=== PATIENT | male | born 1935 ===

== ENCOUNTER 2021-08-07 19:30 | Inpatient (IN) | payer MEDICARE, OTHER ==
[2021-08-07] MEDS ORDERED: Albuterol 200 PUFF (6.7GM INHALER) ONE ×2 (20:32→22:22)
[2021-08-07] MEDS ORDERED: Albuterol Sulfate 2.5 mg/0.5 ml Neb ONE (20:33)
[2021-08-07] MEDS ORDERED: Albuterol Sulfate 1.25 MG/3 ML NEB ONE (20:33)
[2021-08-07] MEDS ORDERED: Acetaminophen 500 MG TAB ONE (20:35)
[2021-08-07 20:41] LABS: #Eosinphils 0.1 thou/uL (0.0-0.7); #Lymphocytes 0.5 thou/uL (1.20-3.40); #Monocytes 0.7 thou/uL (0.11-0.59); #Neutrophils 4.4 thou/uL (1.40-6.50); %Basophils 0.2 % (0.0-1.0); %Eosinophils 1.1 % (0.0-10.0); %Lymphocytes 9.1 % (21.0-51.0); %Monocytes 11.9 % (0.0-10.0); %Neutrophils 77.6 % (42.0-75.0); Hemoglobin 14.4 g/dL (14.0-18.0); Mean Corpuscular Hemoglobin 30.3 pg (27.0-31.0); Mean Corpuscular Volume 91.8 fL (78.0-98.0); Mean Platelet Volume 7.8 fL (7.4-10.4); Platelet Count 182 thou/uL (130-400); RBC Distribution Width 12.6 % (11.5-14.5); Red Blood Cell (RBC) Count 4.77 mill/uL (4.70-6.10); White Blood Cell (WBC) Count 5.7 thou/uL (4.8-10.8)
[2021-08-07 21:05] LABS: ALT (SGPT) 12 U/L (8-55); AST (SGOT) 17 U/L (5-34); Albumin 4.1 g/dL (3.4-4.8); Alkaline Phosphatase 121 U/L (40-110); Anion Gap 13 mmol/L (10-20); BUN (Urea Nitrogen) 21 mg/dL (8.4-25.7); Bilirubin, Total 0.5 mg/dL (0.2-1.2); Calc. Creatinine Clearance 0 mL/min (70-130); Calcium 9.6 mg/dL (7.8-10.44); Carbon Dioxide 35 mmol/L (23-31); Chloride 100 mmol/L (98-107); Globulin 2.8 g/dL (2.4-3.5); Glucose 147 mg/dL (83-110); Potassium 3.5 mmol/L (3.5-5.1); Protein, Total 6.9 g/dL (5.8-8.1); Sodium 144 mmol/L (136-145)
[2021-08-07] MEDS ORDERED: Magnesium 2 GM/50 ML BAG (IN WATER) ONE ×2 (21:45→22:22)
[2021-08-07] MEDS ORDERED: predniSONE 20 MG TAB ONE ×2 (21:45→22:22)
[2021-08-07 22:10] LABS: SARS-CoV-2 NAA Rapid Test DETECTED (NotDetected)
[2021-08-07] MEDS ORDERED: Acetaminophen 325 MG TAB PO PRN (23:00)
[2021-08-07] MEDS ORDERED: Ondansetron ODT 4 MG TAB SL PRN (23:00)
[2021-08-07] MEDS ORDERED: Albuterol 200 PUFF (6.7GM INHALER) INH PRN (23:00)
[2021-08-07] MEDS ORDERED: Ondansetron PF 4 MG/2 ML Vial IVP PRN (23:00)
[2021-08-08 02:08] VITALS: BMI 18.8
[2021-08-08 07:13] LABS: Actual Bicarbonate (HCO3v) 28 mEq/L (22-28); Base Excess 0.6 mEq/L (-2.0 to +3.0); Calcium, Ionized (venous) 1.13 mmol/L (1.16-1.32); Chloride (VBG) 100 mmol/L (98-106); Hemoglobin (Hb) 14.6 g/dL (12.6-17.4); pH (venous) 7.32 (7.32-7.43)
[2021-08-08] MEDS ORDERED: Ondansetron PF 4 MG/2 ML Vial IVP PRN (09:02)
[2021-08-08] MEDS ORDERED: Ondansetron ODT 4 MG TAB SL PRN (09:02)
[2021-08-08] MEDS ORDERED: Acetaminophen 500 MG TAB PO PRN (09:02)
[2021-08-08] MEDS ORDERED: hydrALAZINE 20 MG/ML VIAL SLOW IVP PRN (09:02)
[2021-08-08] MEDS ORDERED: Ibuprofen 200 MG TAB PO PRN (09:02)
[2021-08-08] MEDS ORDERED: Benzonatate 100 MG CAP PO PRN (09:02)
[2021-08-08 10:17] LABS: CRP (Inflammatory) 1.65 mg/dL (= or < 0.5); Magnesium 2.3 mg/dL (1.6-2.6)
[2021-08-08] MEDS ORDERED: Cholecalciferol (Vitamin D3) 400 UNITS TAB PO SCH (10:30)
[2021-08-08] MEDS ORDERED: Mometasone 200 MCG/Formoterol 5 MCG 120 PUFF INHALER INH SCH (10:30)
[2021-08-08] MEDS ORDERED: Ascorbic Acid 500 mg Chewable Tablet PO SCH (10:30)
[2021-08-08] MEDS ORDERED: Zinc Sulfate 220 MG CAP PO SCH (10:30)
[2021-08-08] MEDS: Azithromycin 500 MG in Sodium Chloride 0.9% 250 ML 250 ML IVPB SCH (10:37)
[2021-08-08] MEDS: Dexamethasone 10 MG/ML VIAL SLOW IVP SCH ×2 (10:37→20:20)
[2021-08-08] MEDS: Famotidine 20 MG TAB PO SCH (10:38)
[2021-08-08] MEDS: cefTRIAXone\\ROCEPHIN 1 GM in Sodium Chloride 0.9% 100 ML IVPB SCH (10:38)
[2021-08-08] MEDS ORDERED: Pharmacy to Dose REMDESIVIR IVPB PRN ×2 (10:54→10:55)
[2021-08-08 11:08] LABS: Anion Gap 14 mmol/L (10-20); BUN (Urea Nitrogen) 21 mg/dL (8.4-25.7); Calc. Creatinine Clearance 34 mL/min (70-130); Calcium 9.2 mg/dL (7.8-10.44); Carbon Dioxide 31 mmol/L (23-31); Chloride 98 mmol/L (98-107); Glucose 171 mg/dL (83-110); Potassium 4.1 mmol/L (3.5-5.1); Sodium 139 mmol/L (136-145)
[2021-08-08 11:11] LABS: ALT (SGPT) 12 U/L (8-55); AST (SGOT) 14 U/L (5-34); Albumin 3.6 g/dL (3.4-4.8); Alkaline Phosphatase 107 U/L (40-110); Bilirubin, Direct 0.2 mg/dL (0.1-0.3); Bilirubin, Total 0.3 mg/dL (0.2-1.2)
[2021-08-08] MEDS ORDERED: REMDESIVIR 200 MG in Sodium Chloride 0.9% 250 ML 210 ML IV SCH (13:15)
[2021-08-08] MEDS: Enoxaparin Sodium 30 MG/0.3 ML SYRINGE SC SCH (20:19)
[2021-08-09] MEDS: Mometasone 200 MCG/Formoterol 5 MCG 120 PUFF INHALER INH SCH ×3 (02:25→05:05)
[2021-08-09 06:52] LABS: Anion Gap 14 mmol/L (10-20); BUN (Urea Nitrogen) 33 mg/dL (8.4-25.7); Calc. Creatinine Clearance 33 mL/min (70-130); Carbon Dioxide 29 mmol/L (23-31); Chloride 102 mmol/L (98-107); Glucose 119 mg/dL (83-110); Potassium 3.8 mmol/L (3.5-5.1); Sodium 141 mmol/L (136-145)
[2021-08-09 06:55] LABS: ALT (SGPT) 12 U/L (8-55); AST (SGOT) 24 U/L (5-34); Albumin 3.4 g/dL (3.4-4.8); Alkaline Phosphatase 101 U/L (40-110); Bilirubin, Direct 0.1 mg/dL (0.1-0.3); Bilirubin, Total 0.2 mg/dL (0.2-1.2); Protein, Total 5.8 g/dL (5.8-8.1)
[2021-08-09 07:16] LABS: #Lymphocytes 0.5 thou/uL (1.20-3.40); #Monocytes 0.7 thou/uL (0.11-0.59); #Neutrophils 7.5 thou/uL (1.40-6.50); %Basophils 0.1 % (0.0-1.0); %Eosinophils 0.1 % (0.0-10.0); %Lymphocytes 5.7 % (21.0-51.0); %Monocytes 7.8 % (0.0-10.0); %Neutrophils 86.3 % (42.0-75.0); Hemoglobin 14.5 g/dL (14.0-18.0); Mean Corpuscular Hemoglobin 29.4 pg (27.0-31.0); Mean Corpuscular Volume 91.9 fL (78.0-98.0); Mean Platelet Volume 8.5 fL (7.4-10.4); Platelet Count 206 thou/uL (130-400); RBC Distribution Width 12.4 % (11.5-14.5); Red Blood Cell (RBC) Count 4.95 mill/uL (4.70-6.10); White Blood Cell (WBC) Count 8.6 thou/uL (4.8-10.8)
[2021-08-09] MEDS: REMDESIVIR 100 MG in Sodium Chloride 0.9% 250 ML 230 ML IV SCH (08:35)
[2021-08-09] MEDS: Enoxaparin Sodium 30 MG/0.3 ML SYRINGE SC SCH ×2 (08:35→19:51)
[2021-08-09] MEDS: Zinc Sulfate 220 MG CAP PO SCH (08:36)
[2021-08-09] MEDS: Rosuvastatin 10 MG TAB PO SCH (08:36)
[2021-08-09] MEDS: Famotidine 20 MG TAB PO SCH (08:36)
[2021-08-09] MEDS: Hydrochlorothiazide 25 MG TAB PO SCH (08:36)
[2021-08-09] MEDS: Ascorbic Acid 500 mg Chewable Tablet PO SCH (08:37)
[2021-08-09] MEDS: Cholecalciferol (Vitamin D3) 400 UNITS TAB PO SCH (08:37)
[2021-08-09] MEDS: Azithromycin 500 MG in Sodium Chloride 0.9% 250 ML 250 ML IVPB SCH (10:59)
[2021-08-09] MEDS: Dexamethasone 10 MG/ML VIAL SLOW IVP SCH (10:59)
[2021-08-09] MEDS: cefTRIAXone\\ROCEPHIN 1 GM in Sodium Chloride 0.9% 100 ML IVPB SCH (12:23)
[2021-08-09] MEDS ORDERED: Mometasone 200 MCG/Formoterol 5 MCG 120 PUFF INHALER INH SCH (18:30)
[2021-08-09] MEDS ORDERED: Albuterol 200 PUFF (6.7GM INHALER) INH PRN (18:47)
[2021-08-09] MEDS: Albuterol 200 PUFF (6.7GM INHALER) INH SCH (21:52)
[2021-08-10] MEDS: Albuterol 200 PUFF (6.7GM INHALER) INH SCH ×6 (03:04→21:09)
[2021-08-10] MEDS: Mometasone 200 MCG/Formoterol 5 MCG 120 PUFF INHALER INH SCH ×2 (05:34→19:11)
[2021-08-10 07:40] LABS: #Lymphocytes 0.7 thou/uL (1.20-3.40); #Monocytes 1.1 thou/uL (0.11-0.59); #Neutrophils 8.3 thou/uL (1.40-6.50); %Eosinophils 0.1 % (0.0-10.0); %Lymphocytes 6.8 % (21.0-51.0); %Monocytes 10.4 % (0.0-10.0); %Neutrophils 82.6 % (42.0-75.0); Hemoglobin 13.7 g/dL (14.0-18.0); Mean Corpuscular HGB CONC 31.5 g/dL (32.0-36.0); Mean Corpuscular Hemoglobin 29.1 pg (27.0-31.0); Mean Corpuscular Volume 92.6 fL (78.0-98.0); Mean Platelet Volume 8.4 fL (7.4-10.4); Platelet Count 202 thou/uL (130-400); RBC Distribution Width 12.7 % (11.5-14.5); Red Blood Cell (RBC) Count 4.72 mill/uL (4.70-6.10); White Blood Cell (WBC) Count 10.1 thou/uL (4.8-10.8)
[2021-08-10 08:03] LABS: ALT (SGPT) 14 U/L (8-55); AST (SGOT) 24 U/L (5-34); Alkaline Phosphatase 85 U/L (40-110); Anion Gap 10 mmol/L (10-20); BUN (Urea Nitrogen) 33 mg/dL (8.4-25.7); Bilirubin, Direct 0.1 mg/dL (0.1-0.3); Bilirubin, Total 0.2 mg/dL (0.2-1.2); Calc. Creatinine Clearance 41 mL/min (70-130); Calcium 8.8 mg/dL (7.8-10.44); Carbon Dioxide 33 mmol/L (23-31); Chloride 103 mmol/L (98-107); Glucose 94 mg/dL (83-110); Potassium 3.9 mmol/L (3.5-5.1); Protein, Total 5.1 g/dL (5.8-8.1); Sodium 142 mmol/L (136-145)
[2021-08-10] MEDS ORDERED: Dexamethasone 10 MG/ML VIAL SLOW IVP SCH (09:00)
[2021-08-10] MEDS: Famotidine 20 MG TAB PO SCH (09:18)
[2021-08-10] MEDS: Hydrochlorothiazide 25 MG TAB PO SCH (09:18)
[2021-08-10] MEDS: Ascorbic Acid 500 mg Chewable Tablet PO SCH (09:18)
[2021-08-10] MEDS: Rosuvastatin 10 MG TAB PO SCH (09:18)
[2021-08-10] MEDS: Potassium Chloride 10 MEQ TAB PO SCH (09:18)
[2021-08-10] MEDS: Cholecalciferol (Vitamin D3) 400 UNITS TAB PO SCH (09:18)
[2021-08-10] MEDS: Enoxaparin Sodium 30 MG/0.3 ML SYRINGE SC SCH (09:19)
[2021-08-10] MEDS: Zinc Sulfate 220 MG CAP PO SCH (09:19)
[2021-08-10] MEDS: REMDESIVIR 100 MG in Sodium Chloride 0.9% 250 ML 230 ML IV SCH (09:20)
[2021-08-10] MEDS: Azithromycin 500 MG in Sodium Chloride 0.9% 250 ML 250 ML IVPB SCH (11:57)
[2021-08-10] MEDS: cefTRIAXone\\ROCEPHIN 1 GM in Sodium Chloride 0.9% 100 ML IVPB SCH (14:19)
[2021-08-10] MEDS: Doxycycline 100 MG CAP PO SCH (20:27)
[2021-08-11] MEDS: Albuterol 200 PUFF (6.7GM INHALER) INH SCH ×2 (03:26→06:09)
[2021-08-11] MEDS: Mometasone 200 MCG/Formoterol 5 MCG 120 PUFF INHALER INH SCH (06:09)
[2021-08-11 07:58] VITALS: BP 159/83; TEMP 97.8
[2021-08-11] MEDS ORDERED: Dexamethasone 4 MG TAB PO SCH (08:00)
[2021-08-11] MEDS: Potassium Chloride 10 MEQ TAB PO SCH (08:41)
[2021-08-11] MEDS: Cholecalciferol (Vitamin D3) 400 UNITS TAB PO SCH (08:41)
[2021-08-11] MEDS: Ascorbic Acid 500 mg Chewable Tablet PO SCH (08:42)
[2021-08-11] MEDS: Rosuvastatin 10 MG TAB PO SCH (08:42)
[2021-08-11] MEDS: Doxycycline 100 MG CAP PO SCH (08:42)
[2021-08-11] MEDS: Zinc Sulfate 220 MG CAP PO SCH (08:42)
[2021-08-11] MEDS: REMDESIVIR 100 MG in Sodium Chloride 0.9% 250 ML 230 ML IV SCH (08:43)
[2021-08-11] MEDS: Famotidine 20 MG TAB PO SCH (08:43)
== END 2021-08-11 11:18 | disposition home health service (06) | DRG 177 ==
LOC: ERS 19:30 → T4-A 23:29
PROVIDERS: ADMIT Internal Medicine; ATTEND Internal Medicine
PROC: 8E0ZXY6 Isolation (ICD-10-PCS; principal; 2021-08-07)
PROC: 3E0333Z Introduction of Anti-inflammatory into Peripheral Vein, Percutaneous Approach (ICD-10-PCS; 2021-08-08)
PROC: XW033E5 Introduction of Remdesivir Anti-infective into Peripheral Vein, Percutaneous Approach, New Technology Group 5 (ICD-10-PCS; 2021-08-08)
DX: U07.1 COVID-19 (principal); J96.21 Acute and chronic respiratory failure with hypoxia; N17.9 Acute kidney failure, unspecified; E78.5 Hyperlipidemia, unspecified; I50.9 Heart failure, unspecified; J43.9 Emphysema, unspecified; I25.10 Atherosclerotic heart disease of native coronary artery without angina pectoris; G30.9 Alzheimer's disease, unspecified; F02.80 Dementia in other diseases classified elsewhere, unspecified severity, without behavioral disturbance, psychotic disturbance, mood disturbance, and anxiety; N18.30 Chronic kidney disease, stage 3 unspecified; E87.6 Hypokalemia; K80.20 Calculus of gallbladder without cholecystitis without obstruction; Z88.0 Allergy status to penicillin; I25.2 Old myocardial infarction; Z99.81 Dependence on supplemental oxygen
CPT/HCPCS: 0240U; 36415; 71045; 71275; 80048; 80053; 80076; 82805; 83735; 83880; 84484; 85025; 85379; 86140; 93005; 96365; J0456; J0696; J1100; J1650; J3475; J3490; J7050; J7512; J7611; J8540